=== PATIENT | male | born 1935 | race Caucasian/White ===

== ENCOUNTER 2022-10-28 21:16 | Inpatient (IN) | payer MEDICARE, BC ==
[2022-10-28] MEDS ORDERED: Sodium Chloride 0.9% 10 ML Syringe FLUSH PRN (21:49)
[2022-10-28] MEDS ORDERED: Furosemide 40 MG/4 ML VIAL IVPUSH ONE (21:50)
[2022-10-28 22:10] LABS: ESTIMATED GFR 49 mL/min (>60)
[2022-10-28 22:39] LABS: CORONAVIRUS COVID-19 NAA NEGATIVE (NEGATIVE)
[2022-10-28] MEDS ORDERED: Ondansetron 4 MG Tab.DIS PO PRN (22:48)
[2022-10-28] MEDS ORDERED: Albuterol/Ipratropium 3.0-0.5 MG/3 ML Neb Soln NEB ONE (22:48)
[2022-10-28] MEDS ORDERED: Morphine 2 MG/ML SYRINGE IVPUSH PRN (22:48)
[2022-10-28] MEDS ORDERED: Hydrocortisone/Neomycin/Polymyxin B Ophth Susp 7.5 ML Bottle EYEBOTH SCH (23:00)
[2022-10-28] MEDS ORDERED: Enoxaparin 30 MG/0.3 ML Syringe SUBCUT SCH (23:00)
[2022-10-29] MEDS ORDERED: Hydrocortisone/Neomycin/Polymyxin B Ophth Susp 7.5 ML Bottle EYEBOTH SCH (00:30)
[2022-10-29] MEDS ORDERED: Dexamethasone/Neomycin/Polymyxin B Ophth Susp 5 ML Bottle EYEBOTH SCH (00:58)
[2022-10-29] MEDS: FLUoxetine 20 MG Cap PO SCH ×2 (01:10→21:30)
[2022-10-29] MEDS: Carvedilol 25 MG Tab PO SCH ×3 (01:10→21:27)
[2022-10-29] MEDS: rOPINIRole 0.5 MG Tab PO SCH ×2 (01:21→21:30)
[2022-10-29] MEDS: Losartan 100 MG Tab PO SCH ×2 (01:21→21:28)
[2022-10-29 06:43] LABS: ESTIMATED GFR 54 mL/min (>60)
[2022-10-29] MEDS: Pantoprazole 40 MG Tab.CR PO SCH (06:51)
[2022-10-29] MEDS: Dexamethasone/Neomycin/Polymyxin B Ophth Oint 3.5 GM Tube EYEBOTH SCH ×3 (07:57→20:20)
[2022-10-29] MEDS: Aspirin 325 MG Tab.EC PO SCH (08:48)
[2022-10-29] MEDS ORDERED: Carvedilol 25 MG Tab PO SCH (09:00)
[2022-10-29] MEDS ORDERED: Non-Formulary Medication 1 Each (Aspirin [Aspirin] 325 MG Tablet) PO SCH (09:00)
[2022-10-29] MEDS ORDERED: Losartan 100 MG Tab PO SCH (09:00)
[2022-10-29] MEDS ORDERED: Metolazone 2.5 MG Tab PO SCH (09:00)
[2022-10-29] MEDS ORDERED: FLUOXETINE HCL 10 MG PO SCH (09:00)
[2022-10-29] MEDS ORDERED: FLUoxetine 20 MG Cap PO SCH (09:00)
[2022-10-29] MEDS ORDERED: Furosemide 40 MG/4 ML VIAL IVPUSH ONE (09:57)
[2022-10-29] MEDS: Furosemide 20 MG/2 ML VIAL IVPUSH SCH ×2 (11:39→15:35)
[2022-10-29] MEDS: Potassium Chloride 20 MEQ Tab.ER PO SCH ×2 (15:35→21:28)
[2022-10-29] MEDS: Acetaminophen 325 MG Tab PO PRN ×2 (16:39→22:30)
[2022-10-29] MEDS ORDERED: rOPINIRole 0.5 MG Tab PO SCH (21:00)
[2022-10-29] MEDS ORDERED: Melatonin 3 MG Tab PO SCH (21:00)
[2022-10-29] MEDS ORDERED: Non-Formulary Medication 1 Each (Melatonin [Melatonin] 10 MG Tablet) PO SCH (21:00)
[2022-10-29] MEDS: atorvaSTATin 40 MG Tab PO SCH (21:28)
[2022-10-29] MEDS: Enoxaparin 40 MG/0.4 ML Syringe SUBCUT SCH (21:29)
[2022-10-30] MEDS: Acetaminophen 325 MG Tab PO PRN ×3 (02:59→22:47)
[2022-10-30] MEDS: Dexamethasone/Neomycin/Polymyxin B Ophth Oint 3.5 GM Tube EYEBOTH SCH ×4 (03:02→21:13)
[2022-10-30 06:51] LABS: ESTIMATED GFR 45 mL/min (>60)
[2022-10-30] MEDS: Pantoprazole 40 MG Tab.CR PO SCH (07:14)
[2022-10-30] MEDS ORDERED: Metolazone 2.5 MG Tab *PTOM PO SCH (07:30)
[2022-10-30] MEDS: Furosemide 20 MG/2 ML VIAL IVPUSH SCH (08:36)
[2022-10-30] MEDS: Potassium Chloride 20 MEQ Tab.ER PO SCH ×3 (08:47→21:15)
[2022-10-30] MEDS: Carvedilol 25 MG Tab PO SCH ×3 (08:48→21:25)
[2022-10-30] MEDS: Aspirin 325 MG Tab.EC PO SCH (08:48)
[2022-10-30] MEDS ORDERED: Furosemide 20 MG Tab *PTOM PO SCH (09:00)
[2022-10-30] MEDS: Sodium Chloride 0.9% 10 ML Syringe FLUSH PRN (14:52)
[2022-10-30] MEDS: Losartan 50 MG Tab PO SCH (21:15)
[2022-10-30] MEDS: atorvaSTATin 40 MG Tab PO SCH (21:16)
[2022-10-30] MEDS: Melatonin 3 MG Tab PO SCH (21:16)
[2022-10-30] MEDS: Enoxaparin 40 MG/0.4 ML Syringe SUBCUT SCH (21:17)
[2022-10-30] MEDS: FLUoxetine 20 MG Cap PO SCH (21:18)
[2022-10-30] MEDS: rOPINIRole 0.5 MG Tab PO SCH (21:18)
[2022-10-31] MEDS: Dexamethasone/Neomycin/Polymyxin B Ophth Oint 3.5 GM Tube EYEBOTH SCH ×4 (03:07→20:48)
[2022-10-31] MEDS: Pantoprazole 40 MG Tab.CR PO SCH (06:31)
[2022-10-31] MEDS: Sodium Chloride 0.9% 10 ML Syringe FLUSH PRN (06:32)
[2022-10-31 06:39] LABS: ESTIMATED GFR 49 mL/min (>60)
[2022-10-31] MEDS ORDERED: Magnesium Sulfate/Water 2 GM in Premix Bag 1 BAG IV ONE (09:00)
[2022-10-31] MEDS ORDERED: Potassium Chloride 100 ML IV SCH (09:00)
[2022-10-31] MEDS: Carvedilol 25 MG Tab PO SCH ×2 (09:18→20:50)
[2022-10-31] MEDS: Aspirin 325 MG Tab.EC PO SCH (09:19)
[2022-10-31] MEDS: Potassium Chloride 20 MEQ Tab.ER PO SCH ×3 (09:20→20:52)
[2022-10-31] MEDS: Furosemide 40 MG Tab PO SCH (09:21)
[2022-10-31] MEDS: guaiFENesin/Dextromethorphan 100-10 MG/5 ML Soln 5 ML Cup PO PRN ×3 (09:56→20:55)
[2022-10-31] MEDS: Benzonatate 100 MG Cap PO PRN ×2 (13:50→23:07)
[2022-10-31] MEDS: Losartan 50 MG Tab PO SCH (20:51)
[2022-10-31] MEDS: Enoxaparin 40 MG/0.4 ML Syringe SUBCUT SCH (20:53)
[2022-10-31] MEDS: Melatonin 3 MG Tab PO SCH (20:53)
[2022-10-31] MEDS: atorvaSTATin 40 MG Tab PO SCH (20:53)
[2022-10-31] MEDS: FLUoxetine 20 MG Cap PO SCH (20:54)
[2022-10-31] MEDS: rOPINIRole 0.5 MG Tab PO SCH (20:54)
[2022-10-31] MEDS: Acetaminophen 325 MG Tab PO PRN (20:58)
[2022-11-01] MEDS: Dexamethasone/Neomycin/Polymyxin B Ophth Oint 3.5 GM Tube EYEBOTH SCH ×4 (01:10→20:08)
[2022-11-01] MEDS: guaiFENesin/Dextromethorphan 100-10 MG/5 ML Soln 5 ML Cup PO PRN ×3 (05:12→18:09)
[2022-11-01] MEDS: Metolazone 2.5 MG Tab PO SCH (06:31)
[2022-11-01] MEDS: Pantoprazole 40 MG Tab.CR PO SCH (06:32)
[2022-11-01 07:01] LABS: ESTIMATED GFR 54 mL/min (>60)
[2022-11-01] MEDS: Carvedilol 25 MG Tab PO SCH ×2 (08:12→20:17)
[2022-11-01] MEDS: Aspirin 325 MG Tab.EC PO SCH (08:13)
[2022-11-01] MEDS: Potassium Chloride 20 MEQ Tab.ER PO SCH ×3 (08:13→20:19)
[2022-11-01] MEDS: Furosemide 40 MG Tab PO SCH (08:13)
[2022-11-01] MEDS: Benzonatate 100 MG Cap PO PRN ×3 (08:18→20:22)
[2022-11-01] MEDS: Acetaminophen 325 MG Tab PO PRN ×2 (08:18→20:24)
[2022-11-01] MEDS ORDERED: Magnesium Oxide 400 MG Tab PO SCH (09:00)
[2022-11-01] MEDS: Sodium Chloride 0.9% 10 ML Syringe FLUSH PRN ×2 (09:20→13:36)
[2022-11-01] MEDS ORDERED: Furosemide 40 MG/4 ML VIAL IVPUSH ONE (14:00)
[2022-11-01] MEDS ORDERED: Loperamide 2 MG Cap PO PRN (14:43)
[2022-11-01] MEDS: Losartan 50 MG Tab PO SCH (20:18)
[2022-11-01] MEDS: atorvaSTATin 40 MG Tab PO SCH (20:19)
[2022-11-01] MEDS: Enoxaparin 40 MG/0.4 ML Syringe SUBCUT SCH (20:19)
[2022-11-01] MEDS: Melatonin 3 MG Tab PO SCH (20:20)
[2022-11-01] MEDS: FLUoxetine 20 MG Cap PO SCH (20:20)
[2022-11-01] MEDS: rOPINIRole 0.5 MG Tab PO SCH (20:21)
[2022-11-02] MEDS: Dexamethasone/Neomycin/Polymyxin B Ophth Oint 3.5 GM Tube EYEBOTH SCH ×4 (01:24→21:16)
[2022-11-02] MEDS: guaiFENesin/Dextromethorphan 100-10 MG/5 ML Soln 5 ML Cup PO PRN ×2 (05:05→10:55)
[2022-11-02 06:46] LABS: ESTIMATED GFR 49 mL/min (>60)
[2022-11-02] MEDS: Pantoprazole 40 MG Tab.CR PO SCH (06:47)
[2022-11-02] MEDS: Acetaminophen 325 MG Tab PO PRN ×3 (08:51→22:27)
[2022-11-02] MEDS: Aspirin 325 MG Tab.EC PO SCH (08:52)
[2022-11-02] MEDS: Carvedilol 25 MG Tab PO SCH ×2 (08:52→21:24)
[2022-11-02] MEDS: Saccharomyces Boulardii (Probiotic) 250 MG Cap PO SCH ×2 (08:53→21:18)
[2022-11-02] MEDS: Magnesium Chloride 64 MG Tab.ER PO SCH ×2 (08:53→21:18)
[2022-11-02] MEDS: Furosemide 40 MG Tab PO SCH (08:54)
[2022-11-02] MEDS: Potassium Chloride 10 MEQ Tab.ER PO SCH (08:55)
[2022-11-02] MEDS ORDERED: Magnesium Oxide 400 MG Tab PO SCH (09:00)
[2022-11-02] MEDS: Benzonatate 100 MG Cap PO PRN (21:16)
[2022-11-02] MEDS: Melatonin 3 MG Tab PO SCH (21:17)
[2022-11-02] MEDS: Enoxaparin 40 MG/0.4 ML Syringe SUBCUT SCH (21:17)
[2022-11-02] MEDS: atorvaSTATin 40 MG Tab PO SCH (21:19)
[2022-11-02] MEDS: rOPINIRole 0.5 MG Tab PO SCH (21:19)
[2022-11-02] MEDS: FLUoxetine 20 MG Cap PO SCH (21:20)
[2022-11-02] MEDS: Losartan 50 MG Tab PO SCH (21:25)
[2022-11-03] MEDS: Dexamethasone/Neomycin/Polymyxin B Ophth Oint 3.5 GM Tube EYEBOTH SCH ×4 (01:09→20:23)
[2022-11-03] MEDS: guaiFENesin/Dextromethorphan 100-10 MG/5 ML Soln 5 ML Cup PO PRN (04:22)
[2022-11-03] MEDS: Pantoprazole 40 MG Tab.CR PO SCH (06:39)
[2022-11-03] MEDS: Metolazone 2.5 MG Tab PO SCH (06:39)
[2022-11-03 07:15] LABS: ESTIMATED GFR 30 mL/min (>60)
[2022-11-03] MEDS ORDERED: Metolazone 2.5 MG Tab PO PRN (08:36)
[2022-11-03] MEDS: Benzonatate 100 MG Cap PO PRN (08:51)
[2022-11-03] MEDS: Carvedilol 25 MG Tab PO SCH ×2 (08:51→20:25)
[2022-11-03] MEDS: Aspirin 325 MG Tab.EC PO SCH (08:52)
[2022-11-03] MEDS: Saccharomyces Boulardii (Probiotic) 250 MG Cap PO SCH ×2 (08:52→20:26)
[2022-11-03] MEDS: Potassium Chloride 10 MEQ Tab.ER PO SCH (08:53)
[2022-11-03] MEDS: Magnesium Chloride 64 MG Tab.ER PO SCH ×2 (08:53→20:27)
[2022-11-03] MEDS: Sodium Chloride 0.9% 10 ML Syringe FLUSH PRN (13:47)
[2022-11-03] MEDS: Losartan 50 MG Tab PO SCH (20:25)
[2022-11-03] MEDS: atorvaSTATin 40 MG Tab PO SCH (20:26)
[2022-11-03] MEDS: Enoxaparin 40 MG/0.4 ML Syringe SUBCUT SCH (20:27)
[2022-11-03] MEDS: Melatonin 3 MG Tab PO SCH (20:27)
[2022-11-03] MEDS: rOPINIRole 0.5 MG Tab PO SCH (20:28)
[2022-11-03] MEDS: FLUoxetine 20 MG Cap PO SCH (20:28)
[2022-11-04] MEDS: Dexamethasone/Neomycin/Polymyxin B Ophth Oint 3.5 GM Tube EYEBOTH SCH ×4 (02:40→20:10)
[2022-11-04] MEDS: Codeine/guaiFENesin 10-100 MG/5 ML Syrup 5 ML Cup PO PRN ×2 (03:53→16:50)
[2022-11-04 06:40] LABS: ESTIMATED GFR 45 mL/min (>60)
[2022-11-04] MEDS: Benzonatate 100 MG Cap PO PRN (08:28)
[2022-11-04] MEDS: Carvedilol 25 MG Tab PO SCH ×2 (08:30→20:19)
[2022-11-04] MEDS: Aspirin 325 MG Tab.EC PO SCH (08:32)
[2022-11-04] MEDS: Pantoprazole 40 MG Tab.CR PO SCH (08:32)
[2022-11-04] MEDS: Saccharomyces Boulardii (Probiotic) 250 MG Cap PO SCH ×2 (08:32→20:17)
[2022-11-04] MEDS: Potassium Chloride 10 MEQ Tab.ER PO SCH (08:33)
[2022-11-04] MEDS: Magnesium Chloride 64 MG Tab.ER PO SCH ×2 (08:34→20:17)
[2022-11-04] MEDS: Benzonatate 100 MG Cap PO SCH ×3 (09:59→20:15)
[2022-11-04] MEDS: Albuterol/Ipratropium 3.0-0.5 MG/3 ML Neb Soln NEB SCH ×2 (09:59→16:51)
[2022-11-04] MEDS: Furosemide 40 MG Tab PO SCH (10:00)
[2022-11-04] MEDS: methylPREDNISolone Sodium Succinate 125 MG/2 ML SDV IVPUSH SCH ×2 (10:07→16:51)
[2022-11-04] MEDS: Azithromycin 500 MG in Sodium Chloride 0.9% 250 ML IV SCH (10:08)
[2022-11-04] MEDS: Losartan 50 MG Tab PO SCH (20:16)
[2022-11-04] MEDS: Enoxaparin 40 MG/0.4 ML Syringe SUBCUT SCH (20:16)
[2022-11-04] MEDS: atorvaSTATin 40 MG Tab PO SCH (20:18)
[2022-11-04] MEDS: Melatonin 3 MG Tab PO SCH (20:18)
[2022-11-04] MEDS: FLUoxetine 20 MG Cap PO SCH (20:20)
[2022-11-04] MEDS: rOPINIRole 0.5 MG Tab PO SCH (20:20)
[2022-11-05] MEDS: Sodium Chloride 0.9% 10 ML Syringe FLUSH PRN ×3 (01:35→20:45)
[2022-11-05] MEDS: Albuterol/Ipratropium 3.0-0.5 MG/3 ML Neb Soln NEB SCH ×3 (01:35→16:38)
[2022-11-05] MEDS: methylPREDNISolone Sodium Succinate 125 MG/2 ML SDV IVPUSH SCH ×3 (01:39→16:38)
[2022-11-05] MEDS: Dexamethasone/Neomycin/Polymyxin B Ophth Oint 3.5 GM Tube EYEBOTH SCH ×4 (01:48→20:40)
[2022-11-05 06:48] LABS: ESTIMATED GFR 54 mL/min (>60)
[2022-11-05] MEDS: Pantoprazole 40 MG Tab.CR PO SCH (08:15)
[2022-11-05] MEDS: Aspirin 325 MG Tab.EC PO SCH (10:03)
[2022-11-05] MEDS: Furosemide 40 MG Tab PO SCH (10:03)
[2022-11-05] MEDS: Potassium Chloride 10 MEQ Tab.ER PO SCH (10:03)
[2022-11-05] MEDS: Carvedilol 25 MG Tab PO SCH ×2 (10:04→20:41)
[2022-11-05] MEDS: Magnesium Chloride 64 MG Tab.ER PO SCH ×2 (10:04→20:43)
[2022-11-05] MEDS: Saccharomyces Boulardii (Probiotic) 250 MG Cap PO SCH ×2 (10:04→20:43)
[2022-11-05] MEDS: Benzonatate 100 MG Cap PO SCH ×3 (10:12→20:40)
[2022-11-05] MEDS: Piperacillin/Tazobactam 3.375 GM in Sodium Chloride 0.9% 50 ML IV SCH ×3 (10:21→20:45)
[2022-11-05] MEDS: Azithromycin 500 MG in Sodium Chloride 0.9% 250 ML IV SCH (11:54)
[2022-11-05] MEDS: Melatonin 3 MG Tab PO SCH (20:40)
[2022-11-05] MEDS: atorvaSTATin 40 MG Tab PO SCH (20:41)
[2022-11-05] MEDS: FLUoxetine 20 MG Cap PO SCH (20:41)
[2022-11-05] MEDS: rOPINIRole 0.5 MG Tab PO SCH (20:41)
[2022-11-05] MEDS: Losartan 50 MG Tab PO SCH (20:42)
[2022-11-05] MEDS: Enoxaparin 40 MG/0.4 ML Syringe SUBCUT SCH (20:43)
[2022-11-06] MEDS: Codeine/guaiFENesin 10-100 MG/5 ML Syrup 5 ML Cup PO PRN ×3 (01:20→22:47)
[2022-11-06] MEDS: Sodium Chloride 0.9% 10 ML Syringe FLUSH PRN ×5 (01:21→21:32)
[2022-11-06] MEDS: Albuterol/Ipratropium 3.0-0.5 MG/3 ML Neb Soln NEB SCH ×3 (01:21→16:45)
[2022-11-06] MEDS: methylPREDNISolone Sodium Succinate 125 MG/2 ML SDV IVPUSH SCH ×3 (01:22→17:13)
[2022-11-06] MEDS: Dexamethasone/Neomycin/Polymyxin B Ophth Oint 3.5 GM Tube EYEBOTH SCH ×4 (01:25→21:23)
[2022-11-06] MEDS: Piperacillin/Tazobactam 3.375 GM in Sodium Chloride 0.9% 50 ML IV SCH ×4 (03:41→21:26)
[2022-11-06 07:00] LABS: ESTIMATED GFR 49 mL/min (>60)
[2022-11-06] MEDS: Magnesium Chloride 64 MG Tab.ER PO SCH ×2 (09:21→21:22)
[2022-11-06] MEDS: Carvedilol 25 MG Tab PO SCH ×2 (09:22→21:20)
[2022-11-06] MEDS: Pantoprazole 40 MG Tab.CR PO SCH (09:22)
[2022-11-06] MEDS: Aspirin 325 MG Tab.EC PO SCH (09:22)
[2022-11-06] MEDS: Potassium Chloride 10 MEQ Tab.ER PO SCH (09:22)
[2022-11-06] MEDS: Furosemide 40 MG Tab PO SCH (09:22)
[2022-11-06] MEDS: Saccharomyces Boulardii (Probiotic) 250 MG Cap PO SCH ×2 (09:22→21:21)
[2022-11-06] MEDS: Benzonatate 100 MG Cap PO SCH ×3 (09:29→21:23)
[2022-11-06] MEDS: Enoxaparin 40 MG/0.4 ML Syringe SUBCUT SCH (21:21)
[2022-11-06] MEDS: atorvaSTATin 40 MG Tab PO SCH (21:21)
[2022-11-06] MEDS: Losartan 50 MG Tab PO SCH (21:21)
[2022-11-06] MEDS: Melatonin 3 MG Tab PO SCH (21:23)
[2022-11-06] MEDS: FLUoxetine 20 MG Cap PO SCH (21:24)
[2022-11-06] MEDS: rOPINIRole 0.5 MG Tab PO SCH (21:24)
[2022-11-07] MEDS: Albuterol/Ipratropium 3.0-0.5 MG/3 ML Neb Soln NEB SCH ×3 (01:29→16:24)
[2022-11-07] MEDS: methylPREDNISolone Sodium Succinate 125 MG/2 ML SDV IVPUSH SCH ×3 (01:29→16:25)
[2022-11-07] MEDS: Piperacillin/Tazobactam 3.375 GM in Sodium Chloride 0.9% 50 ML IV SCH ×2 (04:00→09:47)
[2022-11-07] MEDS: Sodium Chloride 0.9% 10 ML Syringe FLUSH PRN ×3 (04:42→16:27)
[2022-11-07 06:47] LABS: ESTIMATED GFR 45 mL/min (>60)
[2022-11-07] MEDS: Pantoprazole 40 MG Tab.CR PO SCH (07:17)
[2022-11-07] MEDS: Carvedilol 25 MG Tab PO SCH ×2 (08:16→21:33)
[2022-11-07] MEDS: Furosemide 40 MG Tab PO SCH (08:17)
[2022-11-07] MEDS: Saccharomyces Boulardii (Probiotic) 250 MG Cap PO SCH ×2 (08:17→21:23)
[2022-11-07] MEDS: Potassium Chloride 10 MEQ Tab.ER PO SCH ×3 (08:17→21:23)
[2022-11-07] MEDS: Magnesium Chloride 64 MG Tab.ER PO SCH ×2 (08:17→21:24)
[2022-11-07] MEDS: Aspirin 325 MG Tab.EC PO SCH (08:17)
[2022-11-07] MEDS: Dexamethasone/Neomycin/Polymyxin B Ophth Oint 3.5 GM Tube EYEBOTH SCH ×3 (08:18→21:24)
[2022-11-07] MEDS: Benzonatate 100 MG Cap PO SCH ×3 (08:18→21:25)
[2022-11-07] MEDS ORDERED: Amoxicillin/Clavulanate K 875-125 MG Tab PO SCH (12:30)
[2022-11-07] MEDS: Azithromycin 500 MG Tab PO SCH (12:30)
[2022-11-07] MEDS: Amoxicillin/Clavulanate K 875-125 MG Tab PO SCH (21:22)
[2022-11-07] MEDS: atorvaSTATin 40 MG Tab PO SCH (21:23)
[2022-11-07] MEDS: Enoxaparin 40 MG/0.4 ML Syringe SUBCUT SCH (21:24)
[2022-11-07] MEDS: rOPINIRole 0.5 MG Tab PO SCH (21:25)
[2022-11-07] MEDS: Melatonin 3 MG Tab PO SCH (21:25)
[2022-11-07] MEDS: FLUoxetine 20 MG Cap PO SCH (21:26)
[2022-11-07] MEDS: Losartan 50 MG Tab PO SCH (21:32)
[2022-11-08] MEDS: Albuterol/Ipratropium 3.0-0.5 MG/3 ML Neb Soln NEB SCH ×3 (01:36→17:33)
[2022-11-08] MEDS: Pantoprazole 40 MG Tab.CR PO SCH (06:41)
[2022-11-08 07:02] LABS: ESTIMATED GFR 45 mL/min (>60)
[2022-11-08] MEDS: Amoxicillin/Clavulanate K 875-125 MG Tab PO SCH ×2 (08:29→20:29)
[2022-11-08] MEDS: Carvedilol 25 MG Tab PO SCH ×2 (08:29→20:29)
[2022-11-08] MEDS: Aspirin 325 MG Tab.EC PO SCH (08:30)
[2022-11-08] MEDS: Saccharomyces Boulardii (Probiotic) 250 MG Cap PO SCH ×2 (08:31→20:29)
[2022-11-08] MEDS: Furosemide 40 MG Tab PO SCH (08:32)
[2022-11-08] MEDS: Benzonatate 100 MG Cap PO SCH ×3 (08:32→20:30)
[2022-11-08] MEDS: Azithromycin 500 MG Tab PO SCH (08:32)
[2022-11-08] MEDS: Magnesium Chloride 64 MG Tab.ER PO SCH ×2 (08:32→20:30)
[2022-11-08] MEDS: Dexamethasone/Neomycin/Polymyxin B Ophth Oint 3.5 GM Tube EYEBOTH SCH ×2 (08:32→13:12)
[2022-11-08] MEDS: predniSONE 20 MG Tab PO SCH (08:37)
[2022-11-08] MEDS: Metolazone 5 MG Tab PO SCH (08:37)
[2022-11-08] MEDS: Potassium Chloride 20 MEQ Tab.ER PO SCH ×2 (08:38→20:29)
[2022-11-08] MEDS: Losartan 50 MG Tab PO SCH (20:29)
[2022-11-08] MEDS: atorvaSTATin 40 MG Tab PO SCH (20:29)
[2022-11-08] MEDS: Enoxaparin 40 MG/0.4 ML Syringe SUBCUT SCH (20:29)
[2022-11-08] MEDS: FLUoxetine 20 MG Cap PO SCH (20:30)
[2022-11-08] MEDS: Melatonin 3 MG Tab PO SCH (20:30)
[2022-11-08] MEDS: rOPINIRole 0.5 MG Tab PO SCH (20:30)
[2022-11-09] MEDS: Albuterol/Ipratropium 3.0-0.5 MG/3 ML Neb Soln NEB SCH ×2 (01:50→08:58)
[2022-11-09 06:35] LABS: ESTIMATED GFR 59 mL/min (>60)
[2022-11-09] MEDS: Pantoprazole 40 MG Tab.CR PO SCH (06:35)
[2022-11-09] MEDS: Metolazone 5 MG Tab PO SCH (08:56)
[2022-11-09] MEDS: predniSONE 20 MG Tab PO SCH (08:56)
[2022-11-09] MEDS: Magnesium Chloride 64 MG Tab.ER PO SCH (08:58)
[2022-11-09] MEDS: Saccharomyces Boulardii (Probiotic) 250 MG Cap PO SCH (08:58)
[2022-11-09] MEDS: Aspirin 325 MG Tab.EC PO SCH (08:58)
[2022-11-09] MEDS: Amoxicillin/Clavulanate K 875-125 MG Tab PO SCH (08:58)
[2022-11-09] MEDS: Furosemide 40 MG Tab PO SCH (08:58)
[2022-11-09] MEDS: Potassium Chloride 20 MEQ Tab.ER PO SCH (08:59)
[2022-11-09] MEDS: Benzonatate 100 MG Cap PO SCH (08:59)
[2022-11-09] MEDS: Azithromycin 500 MG Tab PO SCH (08:59)
[2022-11-09] MEDS: Carvedilol 25 MG Tab PO SCH (09:05)
== END 2022-11-09 14:30 | disposition home or self-care (01) | DRG 124 ==
LOC: FB.ED 21:16 → FB.MS 23:08 → OBSVTOIN 10-30 09:36
PROVIDERS: ADMIT Family Medicine; ATTEND Student in an Organized Health Care Education/Training Program
DX: I50.23 Acute on chronic systolic (congestive) heart failure (principal); I13.0 Hypertensive heart and chronic kidney disease with heart failure and stage 1 through stage 4 chronic kidney disease, or unspecified chronic kidney disease; J18.9 Pneumonia, unspecified organism; N18.32 Chronic kidney disease, stage 3b; E87.1 Hypo-osmolality and hyponatremia; E87.6 Hypokalemia; E83.42 Hypomagnesemia; H10.023 Other mucopurulent conjunctivitis, bilateral; Z20.822 Contact with and (suspected) exposure to COVID-19; K21.9 Gastro-esophageal reflux disease without esophagitis; I25.10 Atherosclerotic heart disease of native coronary artery without angina pectoris; G25.81 Restless legs syndrome; Z79.82 Long term (current) use of aspirin; Z79.899 Other long term (current) drug therapy; Z95.0 Presence of cardiac pacemaker; Z87.440 Personal history of urinary (tract) infections
CPT/HCPCS: 0241U; 36415; 71046; 71250; 80048; 83735; 83880; 84484; 85025; 93005; 93010; 93306; 94150; 94640; 94669; 96372; 96374; 96376; 97110-GO; 97161-GP; 97165-GO; 97530-GO; 97530-GP; 97535-GO; 99222; 99232; 99239; 99284; 99285-25; A9270-GY; G0378; J0456; J1650; J1940; J2543; J2930; J3475; J3490; J7050; J7512; J7620; Q0162; U0002

== ENCOUNTER 2023-02-28 15:22 | Inpatient (IN) | payer MEDICARE, BC ==
[2023-02-28 16:50] LABS: HEMATOCRIT 35.2 % (38.3-50.1); HEMOGLOBIN 11.9 g/dL (12.9-17.7); MEAN CORPUSCULAR HEMOGLOBIN 31.9 pg (27.0-33.3); MEAN CORPUSCULAR HGB CONC 33.9 g/dL (28.7-35.3); MEAN PLATELET VOLUME 7.4 fL (6.7-11.0); PLATELET COUNT,PLT 126 x10(3)uL (117-477); RED BLOOD CELL COUNT 3.74 x10(6)uL (3.90-5.90); RED CELL DISTRIBUTION WIDTH 13.6 % (12.4-15.0); WHITE BLOOD CELL COUNT,WBC 10.1 x10-3/uL (3.2-10.1)
[2023-02-28] MEDS: Acetaminophen 325 MG Tab PO PRN ×2 (16:59→21:00)
[2023-02-28] MEDS: cefTRIAXone 1 GM Vial IVPUSH SCH (17:18)
[2023-02-28] MEDS: Doxycycline 100 MG in Sodium Chloride 0.9% 100 ML IV SCH (17:21)
[2023-02-28] MEDS: Carvedilol 25 MG Tab PO SCH (17:22)
[2023-02-28] MEDS: Sodium Chloride 0.9% 1,000 ML IV SCH (17:22)
[2023-02-28] MEDS: Sodium Chloride 0.9% 10 ML Syringe FLUSH PRN (17:23)
[2023-02-28 17:49] LABS: LYMPHOCYTES PERCENT MAN 3 % (13-37); MONOCYTES PERCENT MAN 4 % (4-12); SEG NEUTROPHILS PERCENT MAN 78 % (46-82)
[2023-02-28 18:03] LABS: BAND PERCENT MAN 15 % (0-6)
[2023-02-28 18:31] LABS: LACTIC ACID 1.2 mmol/L (0.4-2.0)
[2023-02-28] MEDS: Losartan 50 MG Tab PO SCH (20:25)
[2023-02-28] MEDS: atorvaSTATin 40 MG Tab PO SCH (20:57)
[2023-02-28] MEDS: FLUoxetine 20 MG Cap PO SCH (20:58)
[2023-02-28] MEDS: rOPINIRole 0.5 MG Tab PO SCH (20:58)
[2023-02-28] MEDS: Melatonin 3 MG Tab PO SCH (20:58)
[2023-02-28] MEDS: Magnesium Chloride 64 MG Tab.ER PO SCH (20:58)
[2023-02-28] MEDS: Cyanocobalamin (Vitamin B12) 500 MCG Tab PO SCH (20:58)
[2023-02-28] MEDS: Saccharomyces Boulardii (Probiotic) 250 MG Cap PO SCH (21:01)
[2023-02-28 22:25] LABS: BILIRUBIN,URINE NEGATIVE (NEGATIVE); GLUCOSE,URINE 100 mg/dL (NORMAL); KETONES,URINE NEGATIVE (NEGATIVE); LEUKOCYTE ESTERASE,URINE LARGE (NEGATIVE); NITRITE,URINE NEGATIVE (NEGATIVE); OCCULT BLOOD,URINE MODERATE (NEGATIVE); PROTEIN,URINE NEGATIVE (NEGATIVE); UROBILINOGEN,URINE NORMAL (NEGATIVE)
[2023-02-28 22:27] LABS: APPEARANCE,URINE SLIGHTLY CLOUDY (CLEAR); BACTERIA,URINE MODERATE (NS); COLOR,URINE YELLOW (YELLOW); SQUAMOUS EPITHELIAL CELLS,UR OCCASIONAL (NS,R,O); WBC,URINE 75-100 (0-5)
[2023-03-01] MEDS: Sodium Chloride 0.9% 1,000 ML IV SCH (04:32)
[2023-03-01] MEDS: Doxycycline 100 MG in Sodium Chloride 0.9% 100 ML IV SCH ×2 (04:33→17:12)
[2023-03-01] MEDS: Acetaminophen 325 MG Tab PO PRN (06:22)
[2023-03-01] MEDS: Pantoprazole 40 MG Tab.CR PO SCH (06:31)
[2023-03-01 06:36] LABS: HEMOGLOBIN 11.3 g/dL (12.9-17.7); MEAN CORPUSCULAR HEMOGLOBIN 32.2 pg (27.0-33.3); MEAN CORPUSCULAR HGB CONC 34.1 g/dL (28.7-35.3); MEAN CORPUSCULAR VOLUME 94.2 fL (80.8-98.7); MEAN PLATELET VOLUME 7.3 fL (6.7-11.0); PLATELET COUNT,PLT 105 x10(3)uL (117-477); RED BLOOD CELL COUNT 3.51 x10(6)uL (3.90-5.90); RED CELL DISTRIBUTION WIDTH 14.1 % (12.4-15.0); WHITE BLOOD CELL COUNT,WBC 6.2 x10-3/uL (3.2-10.1)
[2023-03-01 06:42] LABS: BLOOD UREA NITROGEN,BUN 61 mg/dL (7-18); BUN/CREATININE RATIO 30.5 (9-20); CALCIUM 8.9 mg/dL (8.6-10.2); CARBON DIOXIDE,CO2 27 mmol/L (21-32); CHLORIDE,CL 98 mmol/L (100-110); ESTIMATED GFR 32 mL/min (>60); GLUCOSE RANDOM 107 mg/dL (80-116); POTASSIUM,K 3.5 mmol/L (3.5-5.3); SODIUM,NA 132 mmol/L (135-145)
[2023-03-01 06:57] LABS: BAND PERCENT MAN 7 % (0-6); EOSINOPHILS PERCENT MAN 3 % (0-5); LYMPHOCYTES PERCENT MAN 8 % (13-37); MONOCYTES PERCENT MAN 1 % (4-12); SEG NEUTROPHILS PERCENT MAN 81 % (46-82)
[2023-03-01] MEDS: Carvedilol 25 MG Tab PO SCH ×2 (09:17→18:18)
[2023-03-01] MEDS: Aspirin 325 MG Tab.EC PO SCH (09:17)
[2023-03-01] MEDS: Empagliflozin 10 MG Tab PO SCH (09:18)
[2023-03-01] MEDS: Saccharomyces Boulardii (Probiotic) 250 MG Cap PO SCH ×2 (09:18→20:45)
[2023-03-01] MEDS: Magnesium Chloride 64 MG Tab.ER PO SCH ×2 (09:18→20:46)
[2023-03-01] MEDS: Spironolactone 25 MG Tab PO SCH (10:02)
[2023-03-01] MEDS: Furosemide 40 MG Tab PO SCH (10:02)
[2023-03-01] MEDS: Ibuprofen 400 MG Tab PO PRN (10:05)
[2023-03-01] MEDS: Furosemide 20 MG Tab PO SCH (13:49)
[2023-03-01] MEDS: cefTRIAXone 1 GM Vial IVPUSH SCH (17:10)
[2023-03-01] MEDS: Sodium Chloride 0.9% 10 ML Syringe FLUSH PRN ×2 (17:12→18:40)
[2023-03-01] MEDS: Cyanocobalamin (Vitamin B12) 500 MCG Tab PO SCH (20:45)
[2023-03-01] MEDS: rOPINIRole 0.5 MG Tab PO SCH (20:45)
[2023-03-01] MEDS: atorvaSTATin 40 MG Tab PO SCH (20:46)
[2023-03-01] MEDS: FLUoxetine 20 MG Cap PO SCH (20:46)
[2023-03-01] MEDS: Losartan 50 MG Tab PO SCH (20:46)
[2023-03-01] MEDS: Melatonin 3 MG Tab PO SCH (20:46)
[2023-03-02] MEDS: Doxycycline 100 MG in Sodium Chloride 0.9% 100 ML IV SCH (04:58)
[2023-03-02] MEDS: Sodium Chloride 0.9% 10 ML Syringe FLUSH PRN (06:15)
[2023-03-02 06:21] LABS: BASOPHILS PERCENT AUTO 0.4 % (0.3-3.8); EOSINOPHILS ABSOLUTE AUTO 0.2 x10-3/uL (0.0-0.6); EOSINOPHILS PERCENT AUTO 4.1 % (0.1-6.8); HEMATOCRIT 32.8 % (38.3-50.1); HEMOGLOBIN 11.3 g/dL (12.9-17.7); LYMPHOCYTES ABSOLUTE AUTO 0.9 x10-3/uL (0.5-4.5); LYMPHOCYTES PERCENT AUTO 16.7 % (15.8-45.3); MEAN CORPUSCULAR HEMOGLOBIN 32.2 pg (27.0-33.3); MEAN CORPUSCULAR HGB CONC 34.4 g/dL (28.7-35.3); MEAN CORPUSCULAR VOLUME 93.6 fL (80.8-98.7); MEAN PLATELET VOLUME 7.5 fL (6.7-11.0); MONOCYTES ABSOLUTE AUTO 0.9 x10-3/uL (0.0-1.2); MONOCYTES PERCENT AUTO 16.4 % (5.5-15.2); NEUTROPHILS ABSOLUTE AUTO 3.3 x10-3/uL (1.7-6.9); NEUTROPHILS PERCENT AUTO 62.4 % (40.3-71.8); PLATELET COUNT,PLT 105 x10(3)uL (117-477); RED BLOOD CELL COUNT 3.51 x10(6)uL (3.90-5.90); RED CELL DISTRIBUTION WIDTH 13.9 % (12.4-15.0); WHITE BLOOD CELL COUNT,WBC 5.2 x10-3/uL (3.2-10.1)
[2023-03-02 06:25] LABS: BLOOD UREA NITROGEN,BUN 51 mg/dL (7-18); BUN/CREATININE RATIO 31.9 (9-20); CALCIUM 9.5 mg/dL (8.6-10.2); CARBON DIOXIDE,CO2 29 mmol/L (21-32); CHLORIDE,CL 97 mmol/L (100-110); CREATININE 1.6 mg/dL (0.70-1.30); EST CRCL DRUG DOSING (CG) 36.38 mL/min; ESTIMATED GFR 42 mL/min (>60); GLUCOSE RANDOM 110 mg/dL (80-116); POTASSIUM,K 3.4 mmol/L (3.5-5.3); SODIUM,NA 133 mmol/L (135-145)
[2023-03-02] MEDS: Pantoprazole 40 MG Tab.CR PO SCH (06:36)
[2023-03-02] MEDS: Spironolactone 25 MG Tab PO SCH (08:05)
[2023-03-02] MEDS: Magnesium Chloride 64 MG Tab.ER PO SCH ×2 (08:05→20:01)
[2023-03-02] MEDS: Carvedilol 25 MG Tab PO SCH ×2 (08:05→17:06)
[2023-03-02] MEDS: Empagliflozin 10 MG Tab PO SCH (08:05)
[2023-03-02] MEDS: Aspirin 325 MG Tab.EC PO SCH (08:05)
[2023-03-02] MEDS: Furosemide 40 MG Tab PO SCH (08:06)
[2023-03-02] MEDS: Saccharomyces Boulardii (Probiotic) 250 MG Cap PO SCH ×2 (08:06→20:05)
[2023-03-02] MEDS: Amoxicillin/Clavulanate K 875-125 MG Tab PO SCH ×2 (11:38→20:03)
[2023-03-02] MEDS: Furosemide 20 MG Tab PO SCH (11:38)
[2023-03-02] MEDS: Ibuprofen 400 MG Tab PO PRN (13:43)
[2023-03-02] MEDS: Doxycycline 100 MG Tab PO SCH (16:17)
[2023-03-02] MEDS: rOPINIRole 0.5 MG Tab PO SCH (20:02)
[2023-03-02] MEDS: Melatonin 3 MG Tab PO SCH (20:03)
[2023-03-02] MEDS: FLUoxetine 20 MG Cap PO SCH (20:03)
[2023-03-02] MEDS: atorvaSTATin 40 MG Tab PO SCH (20:03)
[2023-03-02] MEDS: Cyanocobalamin (Vitamin B12) 500 MCG Tab PO SCH (20:03)
[2023-03-02] MEDS: Losartan 50 MG Tab PO SCH (20:07)
[2023-03-03 06:19] LABS: BASOPHILS PERCENT AUTO 0.4 % (0.3-3.8); EOSINOPHILS ABSOLUTE AUTO 0.2 x10-3/uL (0.0-0.6); EOSINOPHILS PERCENT AUTO 4.1 % (0.1-6.8); HEMATOCRIT 36.1 % (38.3-50.1); HEMOGLOBIN 12.6 g/dL (12.9-17.7); LYMPHOCYTES ABSOLUTE AUTO 1.1 x10-3/uL (0.5-4.5); LYMPHOCYTES PERCENT AUTO 19.4 % (15.8-45.3); MEAN CORPUSCULAR HEMOGLOBIN 32.3 pg (27.0-33.3); MEAN CORPUSCULAR HGB CONC 34.8 g/dL (28.7-35.3); MEAN CORPUSCULAR VOLUME 92.7 fL (80.8-98.7); MEAN PLATELET VOLUME 7.6 fL (6.7-11.0); MONOCYTES ABSOLUTE AUTO 0.7 x10-3/uL (0.0-1.2); MONOCYTES PERCENT AUTO 13.2 % (5.5-15.2); NEUTROPHILS ABSOLUTE AUTO 3.6 x10-3/uL (1.7-6.9); NEUTROPHILS PERCENT AUTO 62.9 % (40.3-71.8); PLATELET COUNT,PLT 127 x10(3)uL (117-477); RED CELL DISTRIBUTION WIDTH 14.1 % (12.4-15.0); WHITE BLOOD CELL COUNT,WBC 5.6 x10-3/uL (3.2-10.1)
[2023-03-03 06:29] LABS: A/G RATIO 1.1; ALANINE AMINOTRANSFERASE,ALT 11 U/L (12-36); ALBUMIN 3.2 g/dL (3.2-4.6); ALKALINE PHOSPHATASE 60 IU/L (56-112); ASPARTATE AMNIOTRANSFERASE,AST 16 IU/L (5-25); BILIRUBIN TOTAL 0.6 mg/dL (0.1-1.3); BLOOD UREA NITROGEN,BUN 48 mg/dL (7-18); CALCIUM 9.8 mg/dL (8.6-10.2); CARBON DIOXIDE,CO2 29 mmol/L (21-32); CHLORIDE,CL 97 mmol/L (100-110); CREATININE 1.6 mg/dL (0.70-1.30); EST CRCL DRUG DOSING (CG) 36.38 mL/min; ESTIMATED GFR 42 mL/min (>60); GLUCOSE RANDOM 109 mg/dL (80-116); MAGNESIUM 1.4 mg/dL (1.8-2.5); POTASSIUM,K 3.5 mmol/L (3.5-5.3); PROTEIN TOTAL,TP 6.2 g/dL (6.0-8.0); SODIUM,NA 134 mmol/L (135-145)
[2023-03-03] MEDS: Pantoprazole 40 MG Tab.CR PO SCH (06:53)
[2023-03-03] MEDS: Acetaminophen 325 MG Tab PO PRN (08:34)
[2023-03-03] MEDS: Ibuprofen 400 MG Tab PO PRN (08:35)
[2023-03-03] MEDS: Carvedilol 25 MG Tab PO SCH ×2 (08:40→18:21)
[2023-03-03] MEDS: Empagliflozin 10 MG Tab PO SCH (08:41)
[2023-03-03] MEDS: Amoxicillin/Clavulanate K 875-125 MG Tab PO SCH ×2 (08:42→21:03)
[2023-03-03] MEDS: Saccharomyces Boulardii (Probiotic) 250 MG Cap PO SCH ×2 (08:42→21:05)
[2023-03-03] MEDS ORDERED: Magnesium Sulfate/Water 4 GM in Premix Bag 1 BAG IV ONE (08:43)
[2023-03-03] MEDS: Doxycycline 100 MG Tab PO SCH ×2 (08:44→21:06)
[2023-03-03] MEDS: Spironolactone 25 MG Tab PO SCH (08:44)
[2023-03-03] MEDS: Magnesium Chloride 64 MG Tab.ER PO SCH ×2 (08:44→21:02)
[2023-03-03] MEDS: Furosemide 40 MG Tab PO SCH (08:45)
[2023-03-03] MEDS: Aspirin 325 MG Tab.EC PO SCH (08:46)
[2023-03-03] MEDS ORDERED: Sodium Chloride 0.9% 250 ML IV SCH (09:00)
[2023-03-03] MEDS: Furosemide 20 MG Tab PO SCH (12:09)
[2023-03-03] MEDS: atorvaSTATin 40 MG Tab PO SCH (21:02)
[2023-03-03] MEDS: Melatonin 3 MG Tab PO SCH (21:02)
[2023-03-03] MEDS: Cyanocobalamin (Vitamin B12) 500 MCG Tab PO SCH (21:03)
[2023-03-03] MEDS: Losartan 50 MG Tab PO SCH (21:04)
[2023-03-03] MEDS: FLUoxetine 20 MG Cap PO SCH (21:04)
[2023-03-03] MEDS: rOPINIRole 0.5 MG Tab PO SCH (21:06)
[2023-03-04] MEDS: Acetaminophen 325 MG Tab PO PRN (02:53)
[2023-03-04 06:49] LABS: BASOPHILS PERCENT AUTO 0.3 % (0.3-3.8); BLOOD UREA NITROGEN,BUN 43 mg/dL (7-18); BUN/CREATININE RATIO 25.3 (9-20); CALCIUM 9.5 mg/dL (8.6-10.2); CARBON DIOXIDE,CO2 30 mmol/L (21-32); CHLORIDE,CL 98 mmol/L (100-110); CREATININE 1.7 mg/dL (0.70-1.30); EOSINOPHILS ABSOLUTE AUTO 0.3 x10-3/uL (0.0-0.6); EST CRCL DRUG DOSING (CG) 34.24 mL/min; ESTIMATED GFR 39 mL/min (>60); GLUCOSE RANDOM 107 mg/dL (80-116); HEMATOCRIT 34.7 % (38.3-50.1); HEMOGLOBIN 12.1 g/dL (12.9-17.7); LYMPHOCYTES ABSOLUTE AUTO 1.2 x10-3/uL (0.5-4.5); LYMPHOCYTES PERCENT AUTO 20.1 % (15.8-45.3); MAGNESIUM 1.8 mg/dL (1.8-2.5); MEAN CORPUSCULAR HEMOGLOBIN 32.3 pg (27.0-33.3); MEAN CORPUSCULAR HGB CONC 34.7 g/dL (28.7-35.3); MEAN CORPUSCULAR VOLUME 92.9 fL (80.8-98.7); MEAN PLATELET VOLUME 7.4 fL (6.7-11.0); MONOCYTES ABSOLUTE AUTO 0.7 x10-3/uL (0.0-1.2); MONOCYTES PERCENT AUTO 11.8 % (5.5-15.2); NEUTROPHILS ABSOLUTE AUTO 3.6 x10-3/uL (1.7-6.9); NEUTROPHILS PERCENT AUTO 62.8 % (40.3-71.8); PLATELET COUNT,PLT 128 x10(3)uL (117-477); POTASSIUM,K 3.8 mmol/L (3.5-5.3); RED BLOOD CELL COUNT 3.74 x10(6)uL (3.90-5.90); RED CELL DISTRIBUTION WIDTH 14.1 % (12.4-15.0); SODIUM,NA 133 mmol/L (135-145); WHITE BLOOD CELL COUNT,WBC 5.7 x10-3/uL (3.2-10.1)
[2023-03-04] MEDS: Pantoprazole 40 MG Tab.CR PO SCH (06:56)
[2023-03-04] MEDS: Carvedilol 25 MG Tab PO SCH (08:39)
[2023-03-04] MEDS: Spironolactone 25 MG Tab PO SCH (08:40)
[2023-03-04] MEDS: Aspirin 325 MG Tab.EC PO SCH (08:40)
[2023-03-04] MEDS: Amoxicillin/Clavulanate K 875-125 MG Tab PO SCH (08:40)
[2023-03-04] MEDS: Saccharomyces Boulardii (Probiotic) 250 MG Cap PO SCH (08:40)
[2023-03-04] MEDS: Magnesium Chloride 64 MG Tab.ER PO SCH (08:41)
[2023-03-04] MEDS: Doxycycline 100 MG Tab PO SCH (08:41)
[2023-03-04] MEDS: Empagliflozin 10 MG Tab PO SCH (08:42)
[2023-03-04] MEDS: Furosemide 40 MG Tab PO SCH (08:42)
[2023-03-04] MEDS ORDERED: Polyvinyl Alcohol 1.4%/Povidone 0.6% Ophth Soln 0.4 ML Box of 30 EYEBOTH PRN (11:00)
[2023-03-04] MEDS ORDERED: Carboxymethylcellulose Sodium 0.5% Ophth Soln 15 ML Bottle EYEBOTH PRN (11:48)
== END 2023-03-04 11:55 | disposition home or self-care (01) | DRG 194 ==
LOC: FB.MS 15:40
PROVIDERS: ADMIT Family Medicine; ATTEND Student in an Organized Health Care Education/Training Program
DX: J18.9 Pneumonia, unspecified organism (principal); E87.1 Hypo-osmolality and hyponatremia; I50.22 Chronic systolic (congestive) heart failure; I13.0 Hypertensive heart and chronic kidney disease with heart failure and stage 1 through stage 4 chronic kidney disease, or unspecified chronic kidney disease; I25.10 Atherosclerotic heart disease of native coronary artery without angina pectoris; N18.32 Chronic kidney disease, stage 3b; D63.1 Anemia in chronic kidney disease; G62.9 Polyneuropathy, unspecified; K21.9 Gastro-esophageal reflux disease without esophagitis; E86.0 Dehydration; E83.42 Hypomagnesemia; E78.5 Hyperlipidemia, unspecified; Z79.82 Long term (current) use of aspirin; Z79.899 Other long term (current) drug therapy; I25.2 Old myocardial infarction; Z95.0 Presence of cardiac pacemaker; Z86.010 Personal history of colon polyps
CPT/HCPCS: 36415; 71046; 80048; 80053; 81001; 83605; 83735; 83880; 85025; 87040; 87086; 87088; 87186; 99223; 99232; 99233; 99239; A9270-GY; J0696; J3475; J3490; J7030; J7050

== ENCOUNTER 2023-12-29 21:49 | Emergency (ER) | payer MEDICARE, BC ==
[2023-12-29] MEDS ORDERED: Sulfamethoxazole/Trimethoprim 800-160 MG Tab PO ONE (21:50)
[2023-12-29 22:42] LABS: BILIRUBIN,URINE NEGATIVE (NEGATIVE); GLUCOSE,URINE 250 mg/dL (NORMAL); KETONES,URINE 15 mg/dL (NEGATIVE); LEUKOCYTE ESTERASE,URINE LARGE (NEGATIVE); NITRITE,URINE NEGATIVE (NEGATIVE); OCCULT BLOOD,URINE LARGE (NEGATIVE); PROTEIN,URINE 500 mg/dL (NEGATIVE); UROBILINOGEN,URINE NORMAL (NEGATIVE)
[2023-12-29 22:44] LABS: APPEARANCE,URINE CLOUDY (CLEAR); BACTERIA,URINE MODERATE (NS); COLOR,URINE RED (YELLOW); RBC,URINE PACKED (0-5); WBC,URINE PACKED (0-5)
[2023-12-29 23:25] LABS: BASOPHILS PERCENT AUTO 0.4 % (0.3-3.8); EOSINOPHILS ABSOLUTE AUTO 0.3 x10-3/uL (0.0-0.6); EOSINOPHILS PERCENT AUTO 3.5 % (0.1-6.8); HEMATOCRIT 37.8 % (38.3-50.1); HEMOGLOBIN 12.4 g/dL (12.9-17.7); LYMPHOCYTES ABSOLUTE AUTO 1.5 x10-3/uL (0.5-4.5); LYMPHOCYTES PERCENT AUTO 20.6 % (15.8-45.3); MEAN CORPUSCULAR HEMOGLOBIN 31.1 pg (27.0-33.3); MEAN CORPUSCULAR HGB CONC 32.9 g/dL (28.7-35.3); MEAN CORPUSCULAR VOLUME 94.5 fL (80.8-98.7); MEAN PLATELET VOLUME 7.7 fL (6.7-11.0); MONOCYTES ABSOLUTE AUTO 0.7 x10-3/uL (0.0-1.2); MONOCYTES PERCENT AUTO 9.3 % (5.5-15.2); NEUTROPHILS ABSOLUTE AUTO 4.8 x10-3/uL (1.7-6.9); NEUTROPHILS PERCENT AUTO 66.2 % (40.3-71.8); PLATELET COUNT,PLT 186 x10(3)uL (117-477); RED BLOOD CELL COUNT 3.99 x10(6)uL (3.90-5.90); RED CELL DISTRIBUTION WIDTH 13.8 % (12.4-15.0); WHITE BLOOD CELL COUNT,WBC 7.3 x10-3/uL (3.2-10.1)
[2023-12-29 23:28] LABS: BLOOD UREA NITROGEN,BUN 40 mg/dL (7-18); BUN/CREATININE RATIO 26.7 (9-20); CALCIUM 9.2 mg/dL (8.6-10.2); CARBON DIOXIDE,CO2 30 mmol/L (21-32); CHLORIDE,CL 100 mmol/L (100-110); CREATININE 1.5 mg/dL (0.70-1.30); ESTIMATED GFR 45 mL/min (>60); GLUCOSE RANDOM 108 mg/dL (80-116); POTASSIUM,K 4.6 mmol/L (3.5-5.3); SODIUM,NA 135 mmol/L (135-145)
[2023-12-29] MEDS: cefTRIAXone 1 GM Vial IM ONE (23:41)
== END 2023-12-30 00:08 | disposition home or self-care (01) ==
LOC: FB.ED 21:49
DX: N30.01 Acute cystitis with hematuria (principal); I11.0 Hypertensive heart disease with heart failure; I50.9 Heart failure, unspecified; K21.9 Gastro-esophageal reflux disease without esophagitis; Z95.0 Presence of cardiac pacemaker; Z79.82 Long term (current) use of aspirin; Z79.899 Other long term (current) drug therapy
CPT/HCPCS: 36415; 80048; 81001; 85025; 87086; 87088; 87186; 96372; 99283; A9270-GY; J0696